=== PATIENT | male | born 1985 | race Asian ===

== ENCOUNTER 2019-09-15 10:32 | Outpatient (CLI) | payer OTHER, BC ==
--- NOTE | 2019-09-15 14:30 | XRAY Report ---
Reason: RIGHT SHOULDER PAIN Procedure Date: 09/15/2019 Accession Number: [id number] / [id number] Procedure: XRS - Shoulder 3 View RT CPT Code: Final Report FULL RESULT: EXAM: RIGHT SHOULDER RADIOGRAPHY 3 VIEWS EXAM DATE: 09/15/2019. CLINICAL HISTORY: RIGHT shoulder pain. COMPARISON: None. TECHNIQUE: AP, Grashey and scapular Y views. FINDINGS: Bones: Normal. No fracture or bone lesion. Joints: The glenohumeral and acromioclavicular joints appear normal. Soft tissues: No calcifications. Right lung is clear. IMPRESSION: Normal right shoulder radiography. [facility]
[2019-09-15 18:27] LABS: BASOPHILS # (AUTO) 0.1 10^3/uL (0.0-0.1); BASOPHILS % (AUTO) 0.7 %; EOSINOPHILS # (AUTO) 0.2 10^3/uL (0.0-0.7); HGB - HEMOGLOBIN 14.8 g/dL (14.0-18.0); LYMPHOCYTES # (AUTO) 2.1 10^3/uL (1.5-3.5); LYMPHOCYTES % (AUTO) 25.6 %; MEAN CORPUSCULAR HEMOGLOBIN 28.1 pg (27.0-31.0); MEAN CORPUSCULAR HGB CONC 32.5 g/dL (32.0-36.0); MEAN CORPUSCULAR VOLUME 86.3 fL (80.0-94.0); MEAN PLATELET VOLUME 9.8 fL (7.4-11.4); MONOCYTES # (AUTO) 0.5 10^3/uL (0.0-1.0); MONOCYTES % (AUTO) 6.2 %; NEUTROPHILS # (AUTO) 5.2 10^3/uL (1.5-6.6); PLT - PLATELET COUNT 329 10^3/uL (130-450); RED BLOOD COUNT 5.27 10^6/uL (4.70-6.10); RED CELL DISTRIBUTION WIDTH 13.2 % (12.0-15.0)
[2019-09-15 18:34] LABS: ALBUMIN 4.8 g/dL (3.2-5.5); ALBUMIN/GLOBULIN RATIO 1.7 (1.0-2.2); BILIRUBIN,TOTAL 0.4 mg/dL (0.2-1.0); CALCIUM 9.7 mg/dL (8.5-10.3); CREATININE 0.7 mg/dL (0.6-1.2); TOTAL PROTEIN 7.7 g/dL (6.7-8.2)
== END 2019-09-15 10:33 | disposition home or self-care (01) ==
LOC: DI.S 10:32
PROVIDERS: ATTEND Registered Nurse
DX: M75.101 Unspecified rotator cuff tear or rupture of right shoulder, not specified as traumatic (principal)
CPT/HCPCS: 36415; 80053; 85025

== ENCOUNTER 2019-11-09 07:13 | Outpatient (CLI) | payer OTHER, BC ==
--- NOTE | 2019-11-09 08:42 | MRI Report ---
Reason: ROTATOR CUFF SHLDR SYNDROME Procedure Date: 11/09/2019 Accession Number: [id number] / [id number] Procedure: MRI - Shoulder RT W/O CPT Code: Final Report FULL RESULT: EXAM: RIGHT SHOULDER MRI WITHOUT CONTRAST EXAM DATE: 11/09/2019 08:29 AM. CLINICAL HISTORY: Anterior and lateral shoulder pain radiating to the biceps region. Limited range of motion. COMPARISON: SHOULDER 3 VIEW RT 09/15/2019 11:06 AM. TECHNIQUE: Multiplanar, multisequence T1-weighted and fluid-sensitive sequences of the shoulder without contrast. Other: None. FINDINGS: Acromioclavicular Region: The acromion is type II. The acromioclavicular joint is unremarkable. The coracoacromial and coracoclavicular ligaments are intact. Mild fluid in the subacromial/subdeltoid bursa consistent with bursitis. Glenohumeral Region: No subluxation. No effusion or loose bodies. The articular cartilage is unremarkable. The glenohumeral ligaments and joint capsule are unremarkable. Bone Marrow: No fracture, marrow edema or bone lesions. Labrum: The labrum is unremarkable on this nonarthrographic study. Musculature/Rotator Cuff: There is bursal surface tendinopathy of the mid to distal supraspinatus consistent with moderate degenerative fraying. There is also mild focal increased T2 signal at the insertion of the posterior supraspinatus and far anterior supraspinatus on the greater tuberosity, focal tendinosis versus tiny partial-thickness tears. No high-grade supraspinatus tear is present. Mild increased signal in the mid to distal infraspinatus, likely tendinosis. No focal tear is visible. The teres minor tendon is normal. Mild subscapularis tendinosis. No tear. The rotator cuff muscle bellies are normal. Biceps Tendon: The long head of the biceps tendon and biceps deanna are intact. Other: The subcutaneous tissues are unremarkable. IMPRESSION: 1. Mild to moderate supraspinatus tendinopathy including fairly diffuse moderate grade bursal surface fraying of the mid to distal tendon and further more focal signal abnormality at the insertion of the anterior most and posterior most fibers on the greater tuberosity, tendinosis versus tiny partial-thickness interstitial tears. No high-grade supraspinatus tear. 2. Mild tendinosis of the mid to distal infraspinatus. 3. Mild tendinosis of the distal subscapularis. 4. Mild subacromial/subdeltoid bursitis. [facility]
== END 2019-11-09 07:14 | disposition home or self-care (01) ==
LOC: DI 07:13
PROVIDERS: ATTEND Orthopaedic Surgery Sports Medicine
DX: M75.91 Shoulder lesion, unspecified, right shoulder (principal); M75.51 Bursitis of right shoulder

== ENCOUNTER 2021-05-23 15:42 | Outpatient (CLI) | payer OTHER, BC | END 2021-05-23 15:43 | disposition home or self-care (01) | LOC: COV 15:42 | PROVIDERS: ATTEND Orthopaedic Surgery | DX: Z01.812 Encounter for preprocedural laboratory examination (principal); Z20.822 Contact with and (suspected) exposure to COVID-19 ==

== ENCOUNTER 2021-05-28 09:48 | Day surgery (SDC) | payer OTHER, BC ==
[2021-05-28] MEDS ORDERED: CEFAZOLIN SODIUM IN 0.9 % NACL 2 GM/100 ML BAG IV ONE (09:55)
[2021-05-28] MEDS ORDERED: CELECOXIB 100 MG CAPSULE PO ONE (09:56)
[2021-05-28] MEDS ORDERED: ACETAMINOPHEN 1,000 MG/100 ML 100 ML IV ONE (09:56)
[2021-05-28] MEDS ORDERED: LACTATED RINGERS 1,000 ML IV ONE ×2 (09:58→14:55)
--- NOTE | 2021-05-28 10:52 | ANESTHESIA ---
Pre-Anesthesia VS, & Labs - Diagnosis right rotator cuff shoulder syndrome - Procedure right shoulder arthroscopy Vital Signs: Temp Pulse Resp BP Pulse Ox 36.5 C 77 16 123/74 96 05/28/21 10:14 05/28/21 10:14 05/28/21 10:14 05/28/21 10:14 05/28/21 10:14 Height: 5 ft 11 in Weight (kg): 91.6 kg Body Mass Index: 28.1 BMI Classification: Overweight - NPO >8 hours - Lab Results Current Lab Results: Laboratory Tests 05/28/21 10:25: POC Whole Bld Glucose 95 Lab results reviewed: Yes Home Medications and Allergies Allergies/Adverse Reactions: Allergies Allergy/AdvReac Type Severity Reaction Status Date / Time No Known Drug Allergies Allergy Verified 05/20/21 13:34 Anes History & Medical History - Anesthetic History Anesthesia Complications: reports: No previous complications Family history of Anesthesia Complications: Denies Family history of Malignant Hyperthermia: Denies - Medical History Cardiovascular: reports: None Pulmonary: reports: None Gastrointestinal: reports: None Urinary: reports: None Musculoskeletal: reports: None Skin: reports: None - Surgical History Eyes Ears Nose Throat (EENT): reports: Tonsil/Adenoidectomy Exam General: Alert, Oriented x3, Cooperative, No acute distress Dental: WNL Mouth Openin Fingerbreadth Neck Mobility: Normal Mallampati classification: II Respiratory: Lungs clear, Normal breath sounds, No respiratory distress, No accessory muscle use Cardiovascular: Regular rate, Normal S1, Normal S2, No murmurs Plan Anesthesia Type: General, Interscalene Block Regional Block: Per Surgeon's request for Post Op pain control Consent for Procedure(s) Verified and Reviewed: Yes Code Status: Attempt Resuscitation ASA classification: 1-Healthy patient Is this case an emergency?: No
[2021-05-28] MEDS ORDERED: KETOROLAC 15 MG/ML VIAL IVP STA (11:15)
[2021-05-28] MEDS ORDERED: HYDROcod/ACETAM 5/325 MG TABLET PO PRN (11:15)
[2021-05-28] MEDS ORDERED: EPINEPHrine 1 MG/ML AMP ONE (11:30)
[2021-05-28] MEDS ORDERED: LIDOCAINE 2%-EPI 1:100000 20 ML MDV ONE (11:31)
[2021-05-28] MEDS ORDERED: BUPIVACAINE 0.25% PF 30 ML VIAL ONE (11:31)
[2021-05-28] MEDS ORDERED: fentaNYL 100 MCG/2 ML VIAL ONE ×2 (11:35→12:15)
[2021-05-28] MEDS ORDERED: ROCURONIUM 50 MG/5 ML VIAL ONE (11:35)
[2021-05-28] MEDS ORDERED: PROPOFOL 200 MG/20 ML VIAL IVP ONE ×2 (11:35→11:41)
[2021-05-28] MEDS ORDERED: ONDANSETRON 4 MG/2 ML VIAL ONE (11:35)
[2021-05-28] MEDS ORDERED: DEXAMETHASONE 4 MG/ML VIAL ONE ×2 (11:35→13:49)
[2021-05-28] MEDS ORDERED: LIDOCAINE-MPF 2% 5 ML VIAL ONE ×3 (11:35→14:24)
[2021-05-28] MEDS ORDERED: MIDAZOLAM 2 MG/2 ML VIAL ONE (11:35)
[2021-05-28] MEDS ORDERED: EPINEPHrine 1 MG/ML AMP IR ONE (12:35)
[2021-05-28] MEDS ORDERED: ePHEDrine 50 MG/ML VIAL IVP ONE (12:46)
[2021-05-28] MEDS ORDERED: KETOROLAC 30 MG/ML VIAL ONE (13:43)
[2021-05-28] MEDS ORDERED: ROPIVACAINE 0.5% PF 20 ML AMPULE ONE (13:49)
[2021-05-28] MEDS ORDERED: NEOSTIGMINE 1 MG/1 ML 10 ML MDV ONE (14:36)
[2021-05-28] MEDS ORDERED: GLYCOPYRROLATE 1 MG/5 ML VIAL ONE (14:36)
--- NOTE | 2021-05-28 14:40 | OPERATIVE REPORT ---
Operative Report - General Procedure Date: 05/28/21 Planned Procedure: Arthroscopy, possible rotator cuff repair right shoulder Pre-Op Diagnosis: Rotator cuff tendinosis right shoulder Procedure Performed: Arthroscopy right shoulder, arthroscopic rotator cuff repair with double row repair Post Op Diagnosis: Full-thickness rotator cuff tear right shoulder - Procedure Note Primary Surgeon: Ti Gonzalez MD Secondary Surgeon: Eliseo MOODY Anesthesia Provider: Surendra Elmore CRNA Anesthesia Technique: General ET tube Estimated Blood Loss (mL): 10 (minimal blood loss) Indications: This is a 35-year-old gentleman with very localized pain to the anterolateral aspect of the right shoulder following work-related injury last year. He is tried nonoperative treatment without any improvement and has persistent pain. He had positive findings on exam with positive impingement sign, well localized tenderness to the subacromial and anterolateral region of the right shoulder, painful arc of motion, pain with rotator cuff testing of supraspinatus. His MRI scan of the right shoulder was done several months ago and did not show any definite tear but did show tendinosis of the rotator cuff supraspinatus. His symptoms have worsened with time despite nonoperative treatment. It was discussed with him that arthroscopy would be potentially helpful especially if he had a rotator cuff tear; this would be repaired. Findings: Is intra-articular arthroscopy showed normal articular surfaces, normal glenoid labrum, normal biceps anchor and normal biceps tendon as much as could be seen arthroscopically. His subscapularis was intact. Subacromial arthroscopy showed marked bursal and inflammatory tissue proliferation with a full thickness supraspinatus tear that was slightly retracted. The tear not only had a crescent-shaped tear but also had some delamination and thinning of the tendon. This was a medium sized tear. Complications: None - Other Other Information/Narrative: Patient was brought to the operating room. He was given a general anesthetic per anesthesia. He is placed in a beachchair positioner with facemask. The right shoulder and upper extremity were prepped and draped in a sterile manner in the usual fashion. A timeout procedure was performed by the entire operating room team and all were in agreement. He did receive 2 g of Ancef intravenously. The bony landmarks of the right shoulder were outlined with a sterile marking pen. A posterior glenohumeral portal was established for posterior glenohumeral arthroscopy. The Cameron 40 degree of black diagnostic arthroscope in conjunction with the Arthrex pump was utilized. Inflow was brought through the arthroscope. Complete diagnostic arthroscopy was performed. A spinal needle was placed in the safe triangle through a small incision. A arthroscopic probe was used to help with the diagnostic aspects of the arthroscopy. The biceps tendon was pulled into the joint. The biceps tendon appeared normal. The subscapularis appeared normal. The teres minor appeared normal posteriorly. The glenoid labrum was circumferentially intact. The biceps labrum anchor was intact. The glenohumeral ligaments appeared normal. The arthroscope was then placed into the posterior subacromial region. A lateral subacromial portal was made. There was considerable bursal proliferation and inflammatory tissue in the subacromial space. This was removed with a combination of the radiofrequency probe and the Arthrex shaver. The rotator cuff tear was gently debrided with the shaver. The tear pattern was identified. It was primarily a crescent shaped tear with some retraction. A posterior lateral portal was made for the arthroscope to provide a good viewing portal of the rotator cuff tear. A 7.5 mm cannula was placed in the lateral subacromial portal. To acromial incisions were made one anterior and one posterior to allow insertion of Arthrex 4.75 swivel lock with fiber tape. The posterior medial row sutures were brought through the cannula and passed with the scorpion suture passer into the rotator cuff; the sutures were then passed out the posterior acromial portal. The second suture anchor sutures were then brought through the lateral subacromial portal, sutures again passed with the scorpion suture passer through the rotator cuff and brought out through the lateral subacromial cannula. 1 suture from each of the medial row anchors were brought out the lateral subacromial portal. The sutures were tensioned. A bone awl was then used to make a forestry pilot hole for the lateral row anchor. The sutures were taken through the anchor and the anchor was then seated in the lateral hole after the sutures had been individually tensioned. The second lateral row anchor was inserted in a similar fashion more posterior in placement. Suture anchor fixation was excellent to all 4 suture anchors. This allowed for double row suture fixation of the rotator cuff. The tension and compression of the cuff appeared to be very good. The arthroscopic incision sites were closed with 3-0 nylon, dry sterile dressing, sling. A physician assistant professor of art was utilized and felt to be medically necessary to help with all aspects of the procedure including holding the scope, help inserting anchors and passing suture. He tolerated the procedure well.
[2021-05-28] MEDS ORDERED: HYDROcod/ACETAM 5/325 MG TABLET ONE (15:46)
--- NOTE | 2021-05-28 16:07 | ANESTHESIA POST OP EVALUATION ---
Anesthesia Post Eval - Post Anesthesia Eval Vitals: Last Vital Signs Temp 36.5 C 05/28/21 15:47 Pulse 77 05/28/21 15:47 Resp 15 05/28/21 15:47 BP 124/70 05/28/21 15:47 Pulse Ox 94 05/28/21 15:47 CV Function Including HR & BP: Stable Pain Control: Satisfactory Nausea & Vomiting: Negative Mental Status: Baseline Respiratory Status: Airway Patent Hydration Status: Satisfactory Anesthesia Complications: None
[2021-05-28 16:27] VITALS: BP 120/67
== END 2021-05-28 09:49 | disposition home or self-care (01) ==
LOC: SDS 09:48
PROVIDERS: ATTEND Orthopaedic Surgery
DX: M75.121 Complete rotator cuff tear or rupture of right shoulder, not specified as traumatic (principal); Z87.891 Personal history of nicotine dependence
CPT/HCPCS: 29827; A9270; C1713; J0131; J0690; J7120

== ENCOUNTER 2022-01-02 09:16 | Outpatient (CLI) | payer BC ==
--- NOTE | 2022-01-02 13:57 | Ultrasound Report ---
PROCEDURE: Testicle INDICATIONS: RIGHT TESTICULAR MASS TECHNIQUE: Real-time scanning was performed of the scrotum and testicles, with image documentation. Color and p ulse Doppler interrogation was performed of both testicles. COMPARISON: None. FINDINGS: Right: Testicle is normal in size at 4.8 x 2.4 x 3.5 cm, and homogenous in echotexture. Epididymis is normal in overall size and morphology. No hydrocele or varicoceles. Overlying scrotal skin is no rmal in thickness. Left: Testicle is normal in size at 4.4 x 2.2 x 3.5 cm, and homogeneous in echotexture. Epididymis is normal in overall size and morphology. 5 x 3 x 5 mm and 6 x 5 x 5 mm left epididymal head cysts. N o hydrocele or varicoceles. Overlying scrotal skin is normal in thickness. Doppler: Color and pulse Doppler demonstrate normal and symmetric arterial flow in both testicles. IMPRESSION: 1. Testicles have normal sonographic appearance with no right testicular mass. 2. Small left epididymal head cysts. Reviewed by: Jelena Jiang MD, PhD on 01/02/2022 1:55 PM PDT Approved by: Jelena Jiang MD, PhD on 01/02/2022 1:55 PM PDT Station ID: [id number]
== END 2022-01-02 09:17 | disposition home or self-care (01) ==
LOC: DI 09:16
PROVIDERS: ATTEND Registered Nurse
DX: N50.3 Cyst of epididymis (principal)

== ENCOUNTER 2024-02-11 07:28 | Outpatient (CLI) | payer BC ==
[2024-02-11 07:42] LABS: BASOPHILS # (AUTO) 0.1 10^3/uL (0.0-0.1); BASOPHILS % (AUTO) 0.6 %; EOSINOPHILS # (AUTO) 0.3 10^3/uL (0.0-0.7); EOSINOPHILS % (AUTO) 2.3 %; HCT - HEMATOCRIT 43.2 % (42.0-52.0); HGB - HEMOGLOBIN 14.1 g/dL (14.0-18.0); LYMPHOCYTES # (AUTO) 1.9 10^3/uL (1.5-3.5); LYMPHOCYTES % (AUTO) 15.7 %; MEAN CORPUSCULAR HEMOGLOBIN 27.9 pg (27.0-31.0); MEAN CORPUSCULAR HGB CONC 32.6 g/dL (32.0-36.0); MEAN CORPUSCULAR VOLUME 85.5 fL (80.0-94.0); MEAN PLATELET VOLUME 9.2 fL (7.4-11.4); MONOCYTES # (AUTO) 0.8 10^3/uL (0.0-1.0); MONOCYTES % (AUTO) 6.4 %; NEUTROPHILS # (AUTO) 9.1 10^3/uL (1.5-6.6); NEUTROPHILS % (AUTO) 74.7 %; PLT - PLATELET COUNT 286 10^3/uL (130-450); RED BLOOD COUNT 5.05 10^6/uL (4.70-6.10); RED CELL DISTRIBUTION WIDTH 13.1 % (12.0-15.0); WHITE BLOOD COUNT 12.1 x10^3/uL (4.8-10.8)
[2024-02-11 07:59] LABS: ALBUMIN 4.7 g/dL (3.2-5.5); ALKALINE PHOSPHATASE 80 IU/L (42-121); ALT ALANINE AMINOTRANSFERASE 33 IU/L (10-60); AST ASPARTATE AMINOTRANSFERASE 23 IU/L (10-42); BILIRUBIN,TOTAL 0.6 mg/dL (0.2-1.0); BUN - BLOOD UREA NITROGEN 17 mg/dL (6-20); CALCIUM 9.9 mg/dL (8.5-10.3); CARBON DIOXIDE - CO2 31 mmol/L (21-32); CHLORIDE 104 mmol/L (101-111); CHOL/HDL RATIO 5.7 (<5.0); CHOLESTEROL 210 mg/dL; CREATININE 0.9 mg/dL (0.6-1.3); GFR - MDRD 94 (>89); GLUCOSE 98 mg/dL (74-104); HDL CHOLESTEROL 37 mg/dL; LDL CHOLESTEROL,CALCULATED 127 mg/dL; LDL/HDL RATIO 3.4 (<3.6); POTASSIUM 4.1 mmol/L (3.5-4.5); SODIUM 139 mmol/L (135-145); TRIGLYCERIDES 229 mg/dL (48-352); VLDL CHOLESTEROL 46 mg/dL
[2024-02-11 08:14] LABS: THYROID STIMULATING HORMONE 0.78 uIU/mL (0.34-5.60)
[2024-02-14 03:07] LABS: HCV AB Non Reactive (Non Reactive)
== END 2024-02-11 07:29 | disposition home or self-care (01) ==
LOC: LAB 07:28
PROVIDERS: ATTEND Registered Nurse
DX: Z00.00 Encounter for general adult medical examination without abnormal findings (principal); Z13.29 Encounter for screening for other suspected endocrine disorder; Z13.220 Encounter for screening for lipoid disorders; Z11.59 Encounter for screening for other viral diseases; Z13.0 Encounter for screening for diseases of the blood and blood-forming organs and certain disorders involving the immune mechanism
CPT/HCPCS: 36415; 80053; 80061; 83721; 84443; 85025; 86803

== ENCOUNTER 2024-03-07 16:31 | Outpatient (CLI) | payer BC ==
[2024-03-07 17:07] LABS: BASOPHILS # (AUTO) 0.1 10^3/uL (0.0-0.1); BASOPHILS % (AUTO) 0.6 %; EOSINOPHILS # (AUTO) 0.2 10^3/uL (0.0-0.7); EOSINOPHILS % (AUTO) 1.8 %; HCT - HEMATOCRIT 40.5 % (42.0-52.0); HGB - HEMOGLOBIN 13.7 g/dL (14.0-18.0); LYMPHOCYTES % (AUTO) 25.6 %; MEAN CORPUSCULAR HEMOGLOBIN 28.4 pg (27.0-31.0); MEAN CORPUSCULAR HGB CONC 33.8 g/dL (32.0-36.0); MEAN CORPUSCULAR VOLUME 83.9 fL (80.0-94.0); MEAN PLATELET VOLUME 9.7 fL (7.4-11.4); MONOCYTES # (AUTO) 0.7 10^3/uL (0.0-1.0); MONOCYTES % (AUTO) 5.6 %; NEUTROPHILS # (AUTO) 7.7 10^3/uL (1.5-6.6); PLT - PLATELET COUNT 300 10^3/uL (130-450); RED BLOOD COUNT 4.83 10^6/uL (4.70-6.10); RED CELL DISTRIBUTION WIDTH 13.2 % (12.0-15.0); WHITE BLOOD COUNT 11.7 x10^3/uL (4.8-10.8)
[2024-03-07 17:22] LABS: ALBUMIN 4.5 g/dL (3.2-5.5); ALBUMIN/GLOBULIN RATIO 1.7 (1.0-2.2); BILIRUBIN,TOTAL 0.3 mg/dL (0.2-1.0); CALCIUM 9.9 mg/dL (8.5-10.3); CREATININE 0.9 mg/dL (0.6-1.3); POTASSIUM 3.5 mmol/L (3.5-4.5); TOTAL PROTEIN 7.1 g/dL (6.4-8.9)
[2024-03-07 17:39] LABS: THYROID STIMULATING HORMONE 0.95 uIU/mL (0.34-5.60)
== END 2024-03-07 16:32 | disposition home or self-care (01) ==
LOC: LAB 16:31
PROVIDERS: ATTEND Registered Nurse
DX: Z00.00 Encounter for general adult medical examination without abnormal findings (principal); Z13.0 Encounter for screening for diseases of the blood and blood-forming organs and certain disorders involving the immune mechanism; Z13.29 Encounter for screening for other suspected endocrine disorder; D72.828 Other elevated white blood cell count
CPT/HCPCS: 36415; 80053; 84439; 84443; 85025

== ENCOUNTER 2024-03-28 16:01 | Outpatient (CLI) | payer BC ==
[2024-03-28 16:23] LABS: BASOPHILS # (AUTO) 0.1 10^3/uL (0.0-0.1); BASOPHILS % (AUTO) 0.8 %; EOSINOPHILS # (AUTO) 0.2 10^3/uL (0.0-0.7); EOSINOPHILS % (AUTO) 2.2 %; HCT - HEMATOCRIT 44.6 % (42.0-52.0); HGB - HEMOGLOBIN 14.6 g/dL (14.0-18.0); LYMPHOCYTES # (AUTO) 3.2 10^3/uL (1.5-3.5); LYMPHOCYTES % (AUTO) 28.5 %; MEAN CORPUSCULAR HEMOGLOBIN 27.9 pg (27.0-31.0); MEAN CORPUSCULAR HGB CONC 32.7 g/dL (32.0-36.0); MEAN CORPUSCULAR VOLUME 85.1 fL (80.0-94.0); MEAN PLATELET VOLUME 9.3 fL (7.4-11.4); MONOCYTES # (AUTO) 0.8 10^3/uL (0.0-1.0); MONOCYTES % (AUTO) 7.2 %; NEUTROPHILS # (AUTO) 6.8 10^3/uL (1.5-6.6); NEUTROPHILS % (AUTO) 60.9 %; PLT - PLATELET COUNT 331 10^3/uL (130-450); RED BLOOD COUNT 5.24 10^6/uL (4.70-6.10); RED CELL DISTRIBUTION WIDTH 12.8 % (12.0-15.0); WHITE BLOOD COUNT 11.1 x10^3/uL (4.8-10.8)
== END 2024-03-28 16:02 | disposition home or self-care (01) ==
LOC: LAB 16:01
PROVIDERS: ATTEND Registered Nurse
DX: D72.829 Elevated white blood cell count, unspecified (principal)
CPT/HCPCS: 36415; 85025